=== PATIENT | male | born 1985 | race African-American/Black ===

== ENCOUNTER 2018-03-24 11:45 | Emergency (ER) | payer OTHER, SELFPAY ==
[2018-03-24 11:46] VITALS: BP 155/99; PULSE 83; RESP 20; TEMP 36.9; O2SAT 100; BMI 39.1
--- NOTE | 2018-03-24 12:25 | ED.VISSUMM ---
- ER Visit Summary Date of Service: 03/24/18 Chief Complaint: Back pain History of Present Illness: The patient is a 33 M who states that he awoke Thursday morning with pain in his left back. He states he went to work and when he was bending and lifting he could feel my disc moving on the left side of my back. He denies any radicular symptoms. No fever. No urinary retention or incontinence. No fecal incontinence or constipation. No radiation to the leg. No muscle weakness. Patient states that this is happened to him a couple times a year but this is by far and away the worst. The patient states that he has an appointment on March [address] Silva but they would like to have a CAT scan to formalize a diagnosis. He was in [facility] emergency department on Thursday and received a prescription for naproxen and Flexeril. Physical Examination: Afebrile vital signs are stable Gen: Well-nourished well-developed Head: Normocephalic atraumatic Eyes: Perrl EOMI ENT: TMs clear no rhinorrhea moist mucous membranes Neck: Supple no lymphadenopathy no JVD nontender CVS: Regular rate rhythm no murmurs normal S1-S2 Respiratory: No distress clear to auscultation bilaterally chest nontender Abdomen: Soft nontender nondistended normal bowel sounds no masses Back: Left lumbar paraspinal muscle tenderness to palpation Extremity: Nontender no edema Skin: Normal color no rash Neuro: alert orientated ?3 CN II-XII intact normal strength sensation reflexes cerebellar Psych: Normal affect normal mood Emergency Department Course and Treatment: Patient was advised that this seems more muscular in nature given the fact he has no radicular symptoms and no neurologic deficits do not feel imaging is warranted on an emergent basis. I recommend to the patient that he use Valium some [place] as needed sparingly for pain as well as Motrin. He is to discuss physical therapy with his doctors. Impression: 1. Acute lumbar muscle spasm This note was generated with Ripl dictation software. It may contain incorrect words, spelling, and punctuation that were not noted in review of the chart prior to signing ED Disposition - Plan for ED Patient: Disposition: Home or Assisted Living Chief Complaint: Back Instructions: ED Spasm Back No Trauma Prescriptions: Diazepam [Valium] 5 mg PO Q8 PRN #20 tab PRN Reason: Muscle Spasm Hydrocodone/Acetaminophen [[place] 5-325 Tablet] 1 - 2 ea PO 4X/DAY PRN PRN 5 Days #20 tab PRN Reason: Pain Ibuprofen [Motrin] 800 mg PO TID PRN PRN 7 Days #20 tab PRN Reason: Pain Referrals: Curtis Silva DO [STAFF PHYSICIAN] - Keep Negin appointment
--- NOTE | 2018-03-24 12:29 | ED.DCSUM_ITS ---
- ER Visit Summary Date of Service: 03/24/18 Chief Complaint: Back pain History of Present Illness: The patient is a 33 M who states that he awoke Thursday morning with pain in his left back. He states he went to work and when he was bending and lifting he could feel my disc moving on the left side of my back. He denies any radicular symptoms. No fever. No urinary retention or incontinence. No fecal incontinence or constipation. No radiation to the leg. No muscle weakness. Patient states that this is happened to him a couple times a year but this is by far and away the worst. The patient states that he has an appointment on March [address] Silva but they would like to have a CAT scan to formalize a diagnosis. He was in [facility]s emergency department on Thursday and received a prescription for naproxen and Flexeril. Physical Examination: Afebrile vital signs are stable Gen: Well-nourished well-developed Head: Normocephalic atraumatic Eyes: Perrl EOMI ENT: TMs clear no rhinorrhea moist mucous membranes Neck: Supple no lymphadenopathy no JVD nontender CVS: Regular rate rhythm no murmurs normal S1-S2 Respiratory: No distress clear to auscultation bilaterally chest nontender Abdomen: Soft nontender nondistended normal bowel sounds no masses Back: Left lumbar paraspinal muscle tenderness to palpation Extremity: Nontender no edema Skin: Normal color no rash Neuro: alert orientated ?3 CN II-XII intact normal strength sensation reflexes cerebellar Psych: Normal affect normal mood Emergency Department Course and Treatment: Patient was advised that this seems more muscular in nature given the fact he has no radicular symptoms and no neurologic deficits do not feel imaging is warranted on an emergent basis. I recommend to the patient that he use Valium some [place] as needed sparingly for pain as well as Motrin. He is to discuss physical therapy with his doctors. Impression: 1. Acute lumbar muscle spasm This note was generated with CooCoo dictation software. It may contain incorrect words, spelling, and punctuation that were not noted in review of the chart prior to signing ED Disposition - Plan for ED Patient: Disposition: Home or Assisted Living Chief Complaint: Back Instructions: ED Spasm Back No Trauma Prescriptions: Diazepam [Valium] 5 mg PO Q8 PRN #20 tab PRN Reason: Muscle Spasm Hydrocodone/Acetaminophen [[place] 5-325 Tablet] 1 - 2 ea PO 4X/DAY PRN PRN 5 Days #20 tab PRN Reason: Pain Ibuprofen [Motrin] 800 mg PO TID PRN PRN 7 Days #20 tab PRN Reason: Pain Referrals: Curtis Silva DO [STAFF PHYSICIAN] - Keep Negin appointment
[2018-03-24] MEDS: diazePAM 5 MG Tablet PO (12:33)
[2018-03-24] MEDS: HYDROcodone Bitartrate/Apap 5/325 Tablet PO (12:33)
[2018-03-24 12:36] VITALS: RESP 16
== END 2018-03-24 12:40 | disposition home or self-care (01) ==
PROVIDERS: Emergency Provider Emergency Medicine; Family Provider Family Medicine; PCP Family Medicine
DX: M62.830 Muscle spasm of back (principal); E66.9 Obesity, unspecified
CPT/HCPCS: 99282

== ENCOUNTER 2019-03-14 21:56 | Observation (INO) | payer MEDICAID, SELFPAY ==
[2019-03-14 22:12] VITALS: BMI 38.2
[2019-03-14 22:22] VITALS: BP 123/76; PULSE 64; RESP 20; TEMP 36.6; O2SAT 93
--- NOTE | 2019-03-14 22:48 | PCM.HP.STD ---
Problem List (1) Intractable back pain Status: Acute History of Present Illness Date of Admission: 03/14/19 Chief Complaint: back pain The patient is a 34 year old male patient with no past medical history presents to [facility] emergency room with intractable back pain. In the emergency room they obtained a CT scan that was read as normal and treated patient with Valium and opiates and were preparing to discharge patient home. The patient states earlier today he was going to his closet when he suddenly coughed and felt as though he had slipped some disks in his back. He has a previous history of having disc bulge 1 year ago by MRI that subsequently resolved. Upon time of discharge from the emergency room today the patient developed more severe pain and was no longer able to ambulate safely. The patient currently rates his pain as 9/10 radiating down the right leg all the way to the foot, the pain is made worse with any movement and gets better when he is laying supine. The patient has a working relationship with [facility] and sees Raul Perez there and therefore they requested to be transferred here for admission for pain control and further work-up. Patient currently denies any chest pain shortness of breath fevers or chills nausea vomiting or diarrhea. The patient is a non-smoker occasional drinker and only surgical history is tonsils and adenoids as a youngster. The patient does not take any current medications and has no known drug allergies. He is admitted to medical surgical floor for observation. Past Medical History Allergies No Known Allergies Allergy (Verified 03/24/18 11:48) Home Medications: Ambulatory Orders Medication Instructions Recorded Ibuprofen [Motrin] 800 mg PO TID PRN PRN 7 Days #20 03/24/18 tab cycloBENZAPRine HCl [Flexeril] 10 mg PO TID PRN PRN 03/14/19 Surgical History: adenoidectomy, tonsillectomy Smoking Status: Never smoker Alcohol: Occasional - *Family History Maternal History Items: No pertinent history Review of Systems Constitutional: Denies: Chills, Fever, Weight Change HEENT: Denies: Head Aches, Sinus Congestion, Sinus Drainage Cardiovascular: Denies: Chest Pain, Palpitations Respiratory: Denies: Cough, Shortness of breath at rest, Sputum production Gastrointestinal: Denies: Abdominal Pain, Nausea, Vomiting Genitourinary: Denies: Dysuria Musculoskeletal: Reports: Back Pain, Leg Pain, Muscle pain. Denies: Joint Pain, Joint Tenderness Skin: Denies: Rash, Wounds Neurological: Denies: Numbness, Tingling, Focal weakness Psychiatric: Denies: Anxiety, Depression, Homicidal Ideations, Suicidal Ideations Hematologic/ Lymphatic: Denies: Easy Bruising, Easy Bleeding VTE Information - Inpt Only VTE Present on Admission: No VTE Mechan Device Prophylaxis: SCD's VTE Pharm Prophylaxis ordered?: No Patient Problems: Active and Suspected Problems Intractable back pain (Acute) - Physical Exam General: Alert, Oriented x3, Cooperative HEENT: Atraumatic, Normocephalic Neck: Supple Lungs: Clear to auscultation, Normal air movement Cardiovascular: Regular rate, Normal S1, Normal S2, No murmurs Abdomen: Bowel Sounds Present, Soft, Non Tender, Obese Extremities: No edema, Capillary Refill Less than 3 Seconds Skin: No rashes, No breakdown Musculoskeletal: Tenderness - low back, - - +SLR Neurological: Cranial nerves II-XII grossly intact Psych/Mental Status: Normal Affect, Appropriate Vital Signs Temp Pulse Resp BP Pulse Ox 97.9 F 64 20 H 123/76 H 93 03/14/19 22:22 03/14/19 22:22 03/14/19 22:22 03/14/19 22:22 03/14/19 22:22 Oxygen Delivery Method Room Air Weight: 289 lb 14.526 oz Body Mass Index (BMI) 38.2 Assessment/Plan All Active Problems Intractable back pain (Acute) Plan 1. Intractable back pain?Place patient in medical surgical floor for observation, order Dilaudid 1 mg every 2 hours as needed pain, add Valium 5 mg p.o. 3 times daily, add prednisone 40 mg p.o. daily x5 days, order MRI lumbar spine in a.m. patient may be on a regular diet this point. Will have physical therapy evaluate and treat in the morning and assess for activities of daily living. Depending on MRI results disposition will be determined accordingly. 2. DVT prophylaxis?SCDs Code Visit OBSV E&M: 59199 Initial observation care L2
[2019-03-14] MEDS: 0.9% NaCl Peripheral Flush Adult/Peds IV (23:37)
[2019-03-14] MEDS: HYDROmorphone 1 MG/ML Syringe IV (23:38)
[2019-03-15] MEDS: HYDROmorphone 1 MG/ML Syringe IV ×7 (03:01→23:03)
[2019-03-15] MEDS: 0.9% NaCl Peripheral Flush Adult/Peds IV ×8 (03:04→23:05)
[2019-03-15 04:30] VITALS: BP 116/78; PULSE 77; RESP 16; TEMP 36.5; O2SAT 96
[2019-03-15] MEDS: diazePAM 5 MG Tablet PO ×2 (05:20→16:18)
[2019-03-15 06:09] LABS: Absolute Lymphocyte Count 0.64 X10^3/ul (0.83-4.51); Absolute Neutrophil Count 8.5 X10^3/uL (2.0-7.7); Hematocrit 48.5 % (40-54); Hemoglobin 15.9 g/dl (13.0-16.5); Lymphocyte # 0.64 X10^3/ul (4.0); Lymphocyte % 6.9 % (19-41); Mean Corp Hgb Conc 32.8 g/gl (32-36); Mean Corpuscular Hgb 27.8 pg (27.0-32.0); Mean Corpuscular Volume 84.8 fL (80-94); Mean Platelet Vol. 10.9 fl (6.2-12.0); Monocyte# 0.04 X10^3/uL; Monocyte% 0.4 % (0-10); Neutrophil # 8.51 X10^3/uL (2.7-7.7); Neutrophil % 92.5 % (47-70); Platelet Count 181 K/mm3 (150-450); RBC Distribution Width SD 43.8 fl (35.1-43.9); Red Blood Count 5.72 M/mm3 (4.6-6.2); White Blood Count 9.2 K/mm3 (4.4-11.0)
[2019-03-15 06:13] LABS: POSITIVE COUNT NO; POSITIVE DIFFERENTIAL NO; POSITIVE MORPHOLOGY NO
--- NOTE | 2019-03-15 07:45 | MRI_ITS ---
STUDY: MRI LUMBAR SPINE WITHOUT CONTRAST REASON FOR EXAM: Male, 34 years old. Low back pain. Right leg pain. TECHNIQUE: Standardized fat and water weighted pulse sequences were obtained in the sagittal and axial planes. COMPARISON: CT scan dated March 14, 2019. FINDINGS: Normal lumbar lordosis. No substantial scoliosis. Normal conus medullaris that terminates at the L1 level. T11-12: Minimal endplate spondylosis. T12-L1: Normal endplates. Normal disc height, hydration and morphology. Normal bilateral facet joints. Normal central canal and bilateral lateral recesses. Normal bilateral intervertebral neural foramina. L1-2: Normal endplates. Normal disc height, hydration and morphology. Normal bilateral facet joints. Normal central canal and bilateral lateral recesses. Normal bilateral intervertebral neural foramina. L2-3: Normal endplates. Normal disc height, hydration and morphology. Normal bilateral facet joints. Normal central canal and bilateral lateral recesses. Normal bilateral intervertebral neural foramina. L3-4: Normal endplates. Normal disc height, hydration and morphology. Normal bilateral facet joints. Normal central canal and bilateral lateral recesses. Normal bilateral intervertebral neural foramina. L4-5: Normal endplates. Disc bulge, additional central/right paracentral protrusion (axial image 7 series 5), with mild central canal narrowing. Normal bilateral facet joints. Bilateral lateral recess narrowing with early nerve root contact on the right. Neural foramina narrowing without impingement. L5-S1: Normal endplates. Disc bulge without central canal narrowing. Normal bilateral facet joints. Normal central canal and bilateral lateral recesses. Neural foramina narrowing without impingement. Normal visualized sacral ala. Normal visualized paraspinous soft tissue structures. Normal retroperitoneum. MRI/Spine Lumbar (Routine) IMPRESSION: Intervertebral disc disease at L4-5 and L5-S1 with mild central canal narrowing at L4-5 Bilateral lateral recess narrowing at L4-5 with early right nerve root contact Multilevel neural foraminal narrowing at L4-5 and L5-S1 without impingement Electronically Signed: Andrew Yanes DO at 9:51 EDT Tel , Service support ,
[2019-03-15] MEDS: predniSONE 20 MG Tablet 40 MG PO (07:56)
[2019-03-15 08:10] LABS: Bedside Glucose 149 mg/dL (70-110)
[2019-03-15 10:30] VITALS: PULSE 77; RESP 16; TEMP 36.8; O2SAT 97
--- NOTE | 2019-03-15 11:11 | CASEMGMT ---
Social Work Note Pt is listed as self-pay. SW reviewed [facility] notes. Pati with [facility] saw pt and pt was provided Medicaid application, [facility], and [facility] and pt was made aware to call [facility] when ready to complete applications. JUSTEN met with pt to provide additional resources. SW introduced self and role at [facility]. Pt is alert and orientated x3. Pt's mom is present in room. Pt gave this worker permission to speak to him in front of his guest. SW provided pt with additional financial resources including [employer], [employer], [employer], and RX assistance programs. SW again encouraged pt to call [facility] when he is ready to complete applications. Pt and pt's mom state understanding. Pati Florez TELECASTING TECHNICIAN, LITHOGRAPHIC PRESS OPERATOR APPRENTICE
[2019-03-15 11:26] LABS: Bedside Glucose 129 mg/dL (70-110)
--- NOTE | 2019-03-15 12:39 | PN_ITS ---
<Mary Mcintyre - Last Filed: 03/15/19 12:40> Patient Problems: Active and Suspected Problems Intractable back pain (Acute) Subjective: Patient seen and examined. Continues to complain of severe lower back pain with minimal movement. Reports he had a similar event with back pain in the past, however not to this extent. Denies urinary continence. Denies numbness, tingling of lower extremities. - Physical Exam General: Alert, Oriented x3, Cooperative HEENT: Atraumatic, PERRLA, EOMI, Normocephalic Neck: Supple, No JVD, Negative Carotid Bruits Lungs: Clear to auscultation, Normal air movement Cardiovascular: Regular rate, Regular Rhythm, Normal S1, Normal S2, No murmurs Abdomen: Bowel Sounds Present, Soft, Non Tender, Non-Distended, Obese Extremities: No clubbing, No cyanosis, No edema, Capillary Refill Less than 3 Seconds Skin: No rashes, No breakdown Musculoskeletal: No Tenderness to Palpation of Joints or Extremities Neurological: Cranial nerves II-XII grossly intact, Neuro grossly intact Psych/Mental Status: Normal Affect, Appropriate Vital Signs Temp Pulse Resp BP Pulse Ox 98.3 F 77 16 116/78 97 03/15/19 10:30 03/15/19 10:30 03/15/19 10:30 03/15/19 04:30 03/15/19 10:30 Oxygen Delivery Method Room Air Weight: 289 lb 14.526 oz Body Mass Index (BMI) 38.2 Intake and Output for Last 24 Hours 03/13/19 03/14/19 03/15/19 23:59 23:59 23:59 Intake Total 400 / 400 Output Total 0 / 0 Balance 400 / 400 Laboratory Tests Past 24 Hrs 03/15/19 05:50 WBC 9.2 RBC 5.72 Hgb 15.9 Hct 48.5 MCV 84.8 MCH 27.8 MCHC 32.8 RDW 14.0 RDW Differential 43.8 Plt Count 181 MPV 10.9 Immature Gran % (Auto) 0.200 Neut % (Auto) 92.5 H Lymph % (Auto) 6.9 L [place] % (Auto) 0.4 Eos % (Auto) 0.0 Baso % (Auto) 0.0 Absolute Neuts (auto) 8.5 H Absolute Lymphs (auto) 0.64 L Total Counted Not Reportable POC Glucose 06/11/19 06/11/19 11:05 08:00 POC Glucose 129 H 149 H Medical Necessity - Tobacco Use Smoking Status: Never smoker Assessment/Plan All Active Problems Intractable back pain (Acute) 1. Intractable back pain-MRI of lumbar spine shows intervertebral disc disease at L4-L5 and L5-S1 with mild central canal narrowing at L4-L5. Bilateral lateral recess narrowing at L4-L5 with early right nerve root contact. Multilevel neural foraminal narrowing at L4-L5 and L5-S1 without impingement. Recommend outpatient follow-up with spine surgery. PRN pain regimen. Patient reports Flexeril has not worked for him in the past. Continue as needed Valium and scheduled prednisone. Further disposition pending PT evaluation. If patient is able to ambulate and pain better controlled, will discharge with outpatient PT and follow-up with spine surgery. Patient has followed up with BONIFACIO Reich at [facility] in the past for prior back pain. 2. Obesity-encouraged diet lifestyle modifications. 3. Elevated blood glucose-check hemoglobin A1c. DVT prophylaxis-not indicated, low risk. This patient was seen by SHALOM Cano under the supervision of Dr. Marin. <Jessy Marin - Last Filed: 03/15/19 14:12> - Physical Exam Vital Signs Temp Pulse Resp BP Pulse Ox 98.3 F 77 16 116/78 97 03/15/19 10:30 03/15/19 10:30 03/15/19 10:30 03/15/19 04:30 03/15/19 10:30 Oxygen Delivery Method Room Air Weight: 289 lb 14.526 oz Body Mass Index (BMI) 38.2 Intake and Output for Last 24 Hours 03/13/19 03/14/19 03/15/19 23:59 23:59 23:59 Intake Total 400 / 400 Output Total 0 / 0 Balance 400 / 400 Laboratory Tests Past 24 Hrs 03/15/19 03/15/19 05:50 05:50 WBC 9.2 RBC 5.72 Hgb 15.9 Hct 48.5 MCV 84.8 MCH 27.8 MCHC 32.8 RDW 14.0 RDW Differential 43.8 Plt Count 181 MPV 10.9 Immature Gran % (Auto) 0.200 Neut % (Auto) 92.5 H Lymph % (Auto) 6.9 L [place] % (Auto) 0.4 Eos % (Auto) 0.0 Baso % (Auto) 0.0 Absolute Neuts (auto) 8.5 H Absolute Lymphs (auto) 0.64 L Total Counted Not Reportable Hemoglobin A1c 5.4 POC Glucose 03/15/19 03/15/19 11:05 08:00 POC Glucose 129 H 149 H Assessment/Plan Patient seen and examined. He was admitted with a complaint of intractable back pain. He said he coughed and felt like he had slipped some discs in his back. HE had a previous disc bulge per MRI and says it subsequently resolved. Patient had a CT scan done at [facility] which was negative. He was admitted and is being managed for intractable back pain. He complained of difficulty with ambulation. Patient seen and examined. He still complains of severe lower back pain. He denies any urinary or bowel incontinence, numbness, tingling or weakness in any extremity. Review of systems is otherwise negative. o/e: Vital Signs Height 6 ft 1 in Weight: 289 lb 14.526 oz Weight in Pounds 289.9 lbs Pulse Ox 97 Temperature 98.3 F Pulse Rate 77 Respiratory Rate 16 Blood Pressure 116/78 Blood Pressure Position Semi-Fowlers General: Alert, Oriented x3, Cooperative HEENT: Atraumatic, PERRLA, EOMI, Normocephalic Neck: Supple, No JVD, Negative Carotid Bruits Lungs: Clear to auscultation, Normal air movement Cardiovascular: Regular rate, Regular Rhythm, Normal S1, Normal S2, No murmurs Abdomen: Bowel Sounds Present, Soft, Non Tender, Non-Distended, Obese Extremities: No clubbing, No cyanosis, No edema, Capillary Refill Less than 3 Seconds Skin: No rashes, No breakdown Musculoskeletal: No Tenderness to Palpation of Joints or Extremities Neurological: Cranial nerves II-XII grossly intact, Neuro grossly intact Psych/Mental Status: Normal Affect, Appropriate Plan is to continue with Valium and prednisone. MRI of lumbar spine showed intervertebral disc disease at L4-L5 and L5-S1 with mild central canal narrowing at L4-L5 as well as bilateral lateral recess narrowing at L4-L5. Patient will need follow-up with spine surgeon on outpatient basis. Awaiting PT evaluation. Once he is able to ambulate and pain is well controlled. He will be discharged home. He will need outpatient physical therapy and follow-up with us by Dr. davis. Rest of management as per SHALOM Cano's note which I reviewed and endorsed. Code Visit OBSV E&M: 34466 Subsequent observation care L2
[2019-03-15 13:23] LABS: Hemoglobin A1c 5.4 % (4.2-6.3)
[2019-03-15 16:30] VITALS: BP 134/84; PULSE 88; RESP 16; TEMP 36.8; O2SAT 97
[2019-03-15 16:35] LABS: Bedside Glucose 131 mg/dL (70-110)
[2019-03-15 22:30] VITALS: BP 112/70; PULSE 72; RESP 16; TEMP 36.5; O2SAT 97
[2019-03-15 23:26] LABS: Bedside Glucose 142 mg/dL (70-110)
[2019-03-16] MEDS: diazePAM 5 MG Tablet PO ×2 (00:29→08:14)
[2019-03-16] MEDS: HYDROmorphone 1 MG/ML Syringe IV ×3 (04:26→12:00)
[2019-03-16] MEDS: 0.9% NaCl Peripheral Flush Adult/Peds IV ×3 (04:27→12:00)
[2019-03-16 04:30] VITALS: BP 120/72; PULSE 69; RESP 18; TEMP 36.5; O2SAT 96
[2019-03-16 07:10] LABS: Bedside Glucose 99 mg/dL (70-110)
[2019-03-16] MEDS: predniSONE 20 MG Tablet 40 MG PO (08:13)
[2019-03-16 10:30] VITALS: BP 126/72; PULSE 72; RESP 16; TEMP 36.6; O2SAT 99
--- NOTE | 2019-03-16 11:56 | DCINST_ITS ---
- Discharge Diagnoses Current Active Problems: Current Active and Chronic Problems Intractable back pain (Acute) You will use the following diet at home:: Calorie/Carbohydrate Controlled (specify 1200, 1400, etc) Discharge Activity: Return to Normal Activity Call your doctor if you observe: Numbness or Tingling, Uncontrolled pain Allergies/Adverse Reactions: Allergies No Known Allergies Allergy (Verified 03/24/18 11:48) Medications to take at Discharge Ibuprofen [Motrin] 800 mg PO TID PRN PRN 7 Days #20 tab 03/24/18 Diazepam [Valium] 5 mg PO TID PRN 4 Days #12 tablet 03/16/19 Oxycodone [Oxyir] 5 mg PO Q6H PRN PRN 2 Days #8 tablet 03/16/19 predniSONE tablet 40 mg PO DAILY@0800 #6 tablet 03/16/19 The following prescriptions were given: Oxycodone [Oxyir] 5 mg PO Q6H PRN PRN 2 Days #8 tablet PRN Reason: Pain predniSONE tablet 40 mg PO DAILY@0800 #6 tablet Diazepam [Valium] 5 mg PO TID PRN 4 Days #12 tablet PRN Reason: Muscle Spasm Primary Care Physician: Care Physician,No Primary [Primary Care Provider] - Please follow up with your Primary Care Physician in: 1 Week Test Results: Test results from this visit will be discussed in further detail at your follow- up appointment, if applicable. Please Follow Up With: Harjit Perez PA-C - [facility] When: Call for appt, 3-5 days or first available Proposed Discharge Date: 03/16/19
--- NOTE | 2019-03-16 12:07 | PCA ---
faxed request to doctors office, wouldnt go through after multiple attempts. called office 2 times and suppose to fax over the records soon
[2019-03-16 12:11] LABS: Bedside Glucose 117 mg/dL (70-110)
--- NOTE | 2019-03-16 12:42 | PCM.DC.SUM ---
Discharge Date and Diagnosis Date of Admission: 03/14/19 Date of Discharge: 03/16/19 - Primary Discharge Diagnosis Active and Suspected Problems 1. Intractable back pain 2. Obesity Hospital Course and Treatment Imaging Results: Diagnostic Data Lumbar Spine MRI 03/15/19 07:45 IMPRESSION: Intervertebral disc disease at L4-5 and L5-S1 with mild central canal narrowing at L4-5 Bilateral lateral recess narrowing at L4-5 with early right nerve root contact Multilevel neural foraminal narrowing at L4-5 and L5-S1 without impingement Electronically Signed: Andrew Yanes DO at 9:51 EDT Tel , Service support , Operations: None Procedures: None Summary of Care Provided: The patient is a 34 year old M admitted 03/14/2019 due to back pain. 1. Intractable back pain-MRI of lumbar spine shows intervertebral disc disease at L4-L5 and L5-S1 with mild central canal narrowing at L4-L5. Bilateral lateral recess narrowing at L4-L5 with early right nerve root contact. Multilevel neural foraminal narrowing at L4-L5 and L5-S1 without impingement. Patient reports Brandcasteril has not worked for him in the past. Continue as needed Valium and scheduled prednisone. Patient denies pain radiation down either leg. Denies numbness, tingling. Denies bowel or bladder incontinence. Patient has follow-up with Fabian mcsDr. Mckeon 03/17/19 at 9:30am. Follow-up with primary care provider in 1 week. 2. Obesity-encouraged diet lifestyle modifications. General: Alert, Oriented x3, Cooperative HEENT: Atraumatic, PERRLA, EOMI, Normocephalic Neck: Supple, No JVD, Negative Carotid Bruits Lungs: Clear to auscultation, Normal air movement Cardiovascular: Regular rate, Regular Rhythm, Normal S1, Normal S2, No murmurs Abdomen: Bowel Sounds Present, Soft, Non Tender, Non-Distended, Obese Extremities: No clubbing, No cyanosis, No edema, Capillary Refill Less than 3 Seconds Skin: No rashes, No breakdown Musculoskeletal: No Tenderness to Palpation of Joints or Extremities Neurological: Cranial nerves II-XII grossly intact, Neuro grossly intact Psych/Mental Status: Normal Affect, Appropriate Patient seen and examined prior to discharge. Physical assessment as noted above. Patient is stable for discharge with follow up recommendations as noted above. This patient was seen by SHALOM Cano under the supervision of Dr. Pichardo. - Physical Exam Vital Signs Temp Pulse Resp BP Pulse Ox 97.9 F 72 16 126/72 H 99 03/16/19 10:30 03/16/19 10:30 03/16/19 10:30 03/16/19 10:30 03/16/19 10:30 Oxygen Delivery Method Room Air Weight: 289 lb 14.526 oz Body Mass Index (BMI) 38.2 Intake and Output for Last 24 Hours 03/14/19 03/15/19 03/16/19 23:59 23:59 23:59 Intake Total 400 / 400 1100 / 1100 Output Total 0 / 0 0 / 0 Balance 400 / 400 1100 / 1100 Laboratory Tests Past 24 Hrs 03/15/19 05:50 Hemoglobin A1c 5.4 POC Glucose 03/16/19 03/16/19 03/15/19 11:54 06:59 23:01 POC Glucose 117 H 99 142 H 03/15/19 16:27 POC Glucose 131 H Discharge Diet: 1800 Calorie Control Diet Discharge Activity: Return to Normal Activity Call your doctor if you observe: Numbness or Tingling, Uncontrolled pain Home Medications: Medications to take at Discharge Ibuprofen [Motrin] 800 mg PO TID PRN PRN 7 Days #20 tab 03/24/18 Diazepam [Valium] 5 mg PO TID PRN 4 Days #12 tablet 03/16/19 Oxycodone [Oxyir] 5 mg PO Q6H PRN PRN 2 Days #8 tablet 03/16/19 predniSONE tablet 40 mg PO DAILY@0800 #6 tablet 03/16/19 Following Prescrptions Were Given to Patient: Oxycodone [Oxyir] 5 mg PO Q6H PRN PRN 2 Days #8 tablet PRN Reason: Pain predniSONE tablet 40 mg PO DAILY@0800 #6 tablet Diazepam [Valium] 5 mg PO TID PRN 4 Days #12 tablet PRN Reason: Muscle Spasm Primary Care Physician: Care Physician,No Primary [Primary Care Provider] - Please follow up with your Primary Care Physician in: 1 Week Please Follow Up With: Vaughn Mckeon DO - [facility] When: 03/17/19 9:30am Disposition: Home Minutes spent on discharge:: 35 Patient Condition:: Stable Medical Necessity - Tobacco Use Smoking Status: Never smoker Meaningful Use Info Meaningful Use Diagnoses (Choose all that apply): None applicable
== END 2019-03-16 13:34 | disposition home or self-care (01) ==
PROVIDERS: Nurse Practitioner Family; Student in an Organized Health Care Education/Training Program; Admitting Provider Family Medicine; Visit Provider Internal Medicine
DX: M51.36 Other intervertebral disc degeneration, lumbar region (principal); E66.9 Obesity, unspecified; Z68.38 Body mass index [BMI] 38.0-38.9, adult; Z71.3 Dietary counseling and surveillance; R73.9 Hyperglycemia, unspecified
CPT/HCPCS: 36415; 72148; 82962; 83036; 85025; 96374; 96376; 97162; 97166; 99218; A4216; G0378

== ENCOUNTER 2019-03-30 20:12 | Emergency (ER) | payer MEDICAID, SELFPAY ==
[2019-03-14 22:12] VITALS: BMI 38.2
[2019-03-30 20:13] VITALS: BP 142/67; PULSE 131; RESP 18; TEMP 36.4; O2SAT 97; BMI 38.6
[2019-03-30] MEDS: Ketorolac 60 MG/2 ML Vial IM (21:07)
[2019-03-30] MEDS: Triamcinolone Acetonide 40 MG/ML Vial IM (21:07)
[2019-03-30] MEDS: Orphenadrine 60 MG/2 ML Ampul IM (21:07)
[2019-03-30] MEDS: HYDROcodone Bitartrate/Apap 5/325 Tablet PO (22:34)
--- NOTE | 2019-03-30 22:34 | ED.VISSUMM ---
- ER Visit Summary Date of Service: 03/30/19 Chief Complaint: Sciatica History of Present Illness: The patient is a 34 M with right lower back pain. The pain starts in his right buttock and radiates down his leg. He has a history of similar symptoms with sciatica. Nothing seemed to bring on this episode, but it is worse with use. Nothing seems to make it better. No GI or symptoms. No new neurologic symptoms. Physical Examination: Afebrile and vital signs unremarkable except for a heart rate of 131. The patient appears uncomfortable. Abdomen soft and nontender. Right paraspinal muscle tenderness to palpation. Straight leg raise negative. Normal strength and sensation. Pulses strong and equal. Reflexes normal. Test Results: None indicated Emergency Department Course and Treatment: Patient treated with Kenalog, Toradol, Norflex for exacerbation of his sciatica. He had only minimal improvement. He also received Silverstreet. Patient has anti-inflammatories and muscle relaxers at home and will continue these. He was given a short course of Silverstreet. He will follow-up with his spine doctor. Treatment Plan: As above Disposition: Discharge Impression: 1. Right-sided sciatica This note was generated with [employer] dictation software. It may contain incorrect words, spelling, and punctuation that were not noted in review of the chart prior to signing ED Disposition - Plan for ED Patient: Referrals: Care Physician,No Primary [Primary Care Provider] -
[2019-03-30 22:37] VITALS: BP 144/87; PULSE 100; RESP 19; O2SAT 100
--- NOTE | 2019-03-30 22:37 | DCINST.ED_ITS ---
ED Disposition - Plan for ED Patient: Instructions: BACK PAIN w/ SCIATICA Prescriptions: Hydrocodone Bitart/Apap 5-325 [[place] 5MG-325MG] 1 tab PO Q6H PRN PRN 3 Days #12 tab PRN Reason: Pain Prescription Printed Referrals: Care Physician,No Primary [Primary Care Provider] -
== END 2019-03-30 22:56 | disposition home or self-care (01) ==
LOC: ED 21:09
PROVIDERS: Emergency Provider Emergency Medicine
DX: M54.41 Lumbago with sciatica, right side (principal)
CPT/HCPCS: 96372; 99283

== ENCOUNTER 2022-08-07 12:16 | Emergency (ER) | payer MEDICAID, SELFPAY ==
[2022-08-07 12:18] VITALS: BP 147/105; PULSE 78; RESP 18; TEMP 36; O2SAT 100; BMI 38.5
--- NOTE | 2022-08-07 13:39 | EX.ED.DYSGE1 ---
HPI History of Present Illness Chief Complaint: Dizziness Informant: patient Narrative Narrative: Patient presents with neck pain that intermittently shoots down his left arm. He states he thinks he slept wrong. He woke up and when he moved his neck he had pain that shot from the base of his neck across his left arm all the way to his thumb. He states it feels a little tingly off and on. It is also a little painful in this area. All the symptoms come and go. He has no chest pain no trouble breathing. He has no injury to the neck or head. No recent fall. He does currently have COVID. He has been coughing more and is also been sleeping more. He sometimes falls asleep in different positions. He does not feel like the COVID is that bad. He mostly has malaise. Although he has a slight cough he is not short of breath. No hemoptysis. [facility] Medical History Back injury Home Medications cyclobenzaprine 10 mg tablet 10 mg PO BID PRN muscle spasm #10 tabs 08/07/22 [Rx Last Taken Unknown] naproxen 500 mg tablet 500 mg PO BID #14 tabs 08/07/22 [Rx Last Taken Unknown] Allergy/AdvReac Type Severity Reaction Status Date / Time No Known Allergies Allergy Verified 08/07/22 12:17 Social History Smoking Status: Never smoker ROS ROS ED Constitutional Constitutional ED: Reports fever(s) Eyes Eyes: Denies blurry vision ENT ENT ED: Reports rhinorrhea; Denies ear pain or sore throat Cardiovascular Cardiovascular: Denies chest pain, palpitations or racing heartbeat Respiratory/Chest Respiratory/Chest: Reports cough; Denies dyspnea or sputum Gastrointestinal Gastrointestinal: Denies nausea or vomiting Musculoskeletal Musculoskeletal: Reports arthralgias, myalgias and neck pain Integumentary Denies rash Neurologic Neurologic: Reports paresthesias and other Details: See history of present illness ; Denies weakness Endocrine Endocrinology: Denies polydipsia or polyuria Hematologic/Lymphatic Hematologic/Lymphatic: Denies anemia Allergic/Immunologic Allergic/Immunologic ED: Denies urticaria EXAM Physical Exam Const Vital Signs: 08/07/22 12:18 11/03/22 12:53 Temperature 96.8 F L Temperature Source Temporal Pulse Rate 78 Respiratory Rate 18 Respiratory Effort Normal Respiratory Pattern Normal Blood Pressure 147/105 H Blood Pressure Mean 119 Pulse Ox 100 Oxygen Delivery Method Room Air Positive well nourished and well developed General Appearance ED: well developed and NAD; Negative for cyanotic or diaphoretic HEENT Reports moist mucous membranes HEENT Narrative: No sinus tenderness. No rashes Eyes PERRL and EOMs intact bilaterally Neck no lymphadenopathy Neck Narrative: No lymphadenopathy. No meningismus. He really does not have tenderness of his neck but he does have some discomfort at the base when he turns side to side. When I actually overload his neck he does get radicular symptoms down and even gets a little bit of pain in the tip of his thumb. Where he points to the symptoms is most consistent with a C8 radiculopathy. Chest Wall inspection of chest normal Resp normal respiratory effort and clear to auscultation bilaterally Resp Narrative: Clear bilaterally. No pain with a deep breath. Cardio regular rate, regular rhythm and no murmurs GI normal to inspection, nondistended, normoactive bowel sounds and non-tender Palpation: soft Back/Spine no CVA tenderness Extremity General Extremety ED: Negative for tenderness Neuro oriented x3 Neuro Narrative: Patient has excellent market research associate strength including hitchhike. No bicep tricep proximal flexor or extensor weakness. I get no motor change at all. He has a little subjective decreased sensation of the dorsum of the left thumb and along the proximal third of the radius over the forearm. He can still feel the areas but it does feel different to him. Pulses are normal. Capillary refill is normal. Sensorium / Orientation: alert Psych mental status grossly normal Skin no rashes or lesions noted Skin Narrative: No vesicles. MDM MDM MDM Narrative Medical decision making narrative: Patient's symptoms and exam are all consistent with lumbar radiculopathy on the left. There is no trauma. I do not think imaging is going to change this. We will start him on nonsteroidals at this time. I will use muscle relaxants to see if he gets some relief. I explained that if its not getting better they may start him on steroids. If he gets any other symptoms such as chest pain or trouble breathing he should return. If he develops weakness he should return. Discharge Plan Triage Chief Complaint: Dizziness ED Provider: Eliseo Jorgensen Dx/Rx/DC Orders Clinical Impression: Cervical radiculopathy Instructions: ED Radiculopathy, Cervical Prescriptions: New cyclobenzaprine 10 mg tablet 10 mg PO BID PRN (Reason: muscle spasm) Qty: 10 0RF naproxen 500 mg tablet 500 mg PO BID Qty: 14 0RF Primary Care Provider: Care Physician,No Primary Referrals: Graciela Quiroz MD [Med Staff - Process Engineering Technician] - 1 Week if not improving Care Physician,No Primary [Primary Care Provider] - Disposition Disposition: Home, Self Care
== END 2022-08-07 13:51 | disposition home or self-care (01) ==
PROVIDERS: Emergency Provider Emergency Medicine; Visit Provider Emergency Medicine
DX: M54.12 Radiculopathy, cervical region (principal); R42 Dizziness and giddiness; R20.2 Paresthesia of skin
CPT/HCPCS: 99282